=== PATIENT | male | born 1990 | race Caucasian/White ===

== ENCOUNTER 2019-02-12 20:54 | Emergency (ER) | payer BC, OTHER ==
[~2019-02-12] VITALS: Ht 185.4 cm; Wt 97.0 kg
[~2019-02-12 20:54] MED LIST: HYDR1TAB PO; IBUP-812 PO
[2019-02-12 21:33] VITALS: BP 164/107
--- NOTE | 2019-02-12 22:51 | NUR ---
PT BACK FROM X RAY . AT BEDSIDE.
== END 2019-02-13 00:03 | disposition home or self-care (01) ==
LOC: ER 20:55
DX: S91.204A Unspecified open wound of right lesser toe(s) with damage to nail, initial encounter (principal); Z88.1 Allergy status to other antibiotic agents; Z79.899 Other long term (current) drug therapy; W22.8XXA Striking against or struck by other objects, initial encounter; Y93.89 Activity, other specified; Y92.89 Other specified places as the place of occurrence of the external cause; Y99.8 Other external cause status
CPT/HCPCS: 11730; 11760; 73620; 99283; 99284